=== PATIENT | female | born 1965 | race Caucasian/White ===

== ENCOUNTER 2017-01-12 13:19 | Emergency (ER) | payer SELFPAY ==
[~2017-01-12] VITALS: Ht 162.6 cm; Wt 49.9 kg
[2017-01-12 14:18] VITALS: BP 139/65
[2017-01-12 14:39] LABS: BASO # 0.1 x10^3/uL (0.0-0.2); BASO % 1 % (0-3); EOS % 5 % (0-3); HEMATOCRIT 39.5 % (36.0-47.0); HEMOGLOBIN 13.4 g/dL (12.0-15.5); LYMPH # 2.9 x10^3/uL (1.0-4.8); LYMPH % 34 % (24-48); MEAN CORPUSCULAR HEMOGLOBIN 32 pg (25-35); MEAN CORPUSCULAR HGB CONC 34 g/dL (31-37); MEAN CORPUSCULAR VOLUME 94 fL (79-100); MONO % 8 % (0-9); NEUT % 52 % (31-73); PLATELET COUNT 328 x10^3/uL (140-400); RED BLOOD COUNT 4.19 x10^6/uL (3.50-5.40); RED CELL DISTRIBUTION WIDTH 12.7 % (11.5-14.5); WHITE BLOOD COUNT 8.5 x10^3/uL (4.0-11.0)
[2017-01-12 15:43] LABS: CALCIUM 8.8 mg/dL (8.5-10.1); CREATININE 0.8 mg/dL (0.6-1.0); GFR 75.3; POTASSIUM 4.3 mmol/L (3.5-5.1)
[2017-01-12 15:49] LABS: ALBUMIN/GLOBULIN RATIO 1.3 (1.0-1.7); TOTAL BILIRUBIN 0.2 mg/dL (0.2-1.0); TOTAL PROTEIN 7.1 g/dL (6.4-8.2)
--- NOTE | 2017-01-12 16:09 | PHYS DOC ---
Past Medical History Past Medical History: Depression, Other Additional Past Medical Histor: Menigioma, Vertigo Past Surgical History: Cholecystectomy, Additional Past Surgical Histo: Brain Alcohol Use: Rarely Drug Use: None Adult General Chief Complaint Chief Complaint: SYNCOPE HPI HPI Patient is a 51 year old female who presents with foot pain after syncopal episode. The patient states she was getting out of the shower & had onset of vertigo resulting in sudden syncopal episode. She is unsure how long she was unconscious. She had brief prodrome. Denies headache, chest pain, palpitations , shortness of breath preceding syncope. She states she has been having similar symptoms for about a year, has been followed by a physician & has been told this is related to vertigo so she usually takes meclizine. She states the circumstances of the syncopal episode are very similar to all previous episodes. She denies tongue biting, incontinence, mental status changes after waking. She denies head trauma, denies neck pain. Her only complaint is right foot pain & bruising. She has a PCP in [facility]. Review of Systems Review of Systems Constitutional: Denies fever or chills, reports syncope. Eyes: Denies change in visual acuity HENT: Denies nasal congestion or sore throat Respiratory: Denies cough or shortness of breath Cardiovascular: Denies chest pain or edema GI: Denies abdominal pain, nausea, vomiting,or diarrhea Musculoskeletal: Reports foot pain. Integument: Denies rash or skin lesions Neurologic: Denies headache, focal weakness or sensory changes Allergies Allergies Allergies Coded Allergies Type Severity Reaction Last Updated Verified No Known Drug Allergies 01/12/17 No Physical Exam Physical Exam Constitutional: Well developed, well nourished, no acute distress, non-toxic appearance. HENT: Normocephalic, atraumatic, bilateral external ears normal, oropharynx moist, nose normal. Eyes: PERRLA, EOMI, conjunctiva normal, no discharge. Neck: supple, no stridor. Cardiovascular: RRR, no murmurs, no edema. Lungs & Thorax: LCTAB, no wheezing, no respiratory distress. Abdomen: soft, nontender, nondistended. Skin: Warm, dry, no erythema, no rash. Back: No tenderness. Extremities: No tenderness, no edema. Neurologic: Alert and oriented X 3, no focal deficits noted. Psychologic: Affect normal, judgement normal, mood normal. Current Patient Data Vital Signs Vital Signs Date Time Temp Pulse Resp B/P (MAP) Pulse Ox O2 Delivery O2 Flow Rate FiO2 01/12/17 14:18 66 139/65 (89) 96 Room Air 01/12/17 14:00 98.1 16 98.1 Lab Values Laboratory Tests Test 01/12/17 14:29 01/12/17 15:26 White Blood Count 8.5 x10^3/uL (4.0-11.0) Red Blood Count 4.19 x10^6/uL (3.50-5.40) Hemoglobin 13.4 g/dL (12.0-15.5) Hematocrit 39.5 % (36.0-47.0) Mean Corpuscular Volume 94 fL (79-100) Mean Corpuscular Hemoglobin 32 pg (25-35) Mean Corpuscular Hemoglobin Concent 34 g/dL (31-37) Red Cell Distribution Width 12.7 % (11.5-14.5) Platelet Count 328 x10^3/uL (140-400) Neutrophils (%) (Auto) 52 % (31-73) Lymphocytes (%) (Auto) 34 % (24-48) Monocytes (%) (Auto) 8 % (0-9) Eosinophils (%) (Auto) 5 % (0-3) H Basophils (%) (Auto) 1 % (0-3) Neutrophils # (Auto) 4.4 x10^3uL (1.8-7.7) Lymphocytes # (Auto) 2.9 x10^3/uL (1.0-4.8) Monocytes # (Auto) 0.7 x10^3/uL (0.0-1.1) Eosinophils # (Auto) 0.5 x10^3/uL (0.0-0.7) Basophils # (Auto) 0.1 x10^3/uL (0.0-0.2) Sodium Level 140 mmol/L (136-145) Potassium Level 4.3 mmol/L (3.5-5.1) Chloride Level 106 mmol/L (98-107) Carbon Dioxide Level 26 mmol/L (21-32) Anion Gap 8 (6-14) Blood Urea Nitrogen 15 mg/dL (7-20) Creatinine 0.8 mg/dL (0.6-1.0) Estimated GFR (Cockcroft-Gault) 75.3 BUN/Creatinine Ratio 19 (6-20) Glucose Level 101 mg/dL (70-99) H Calcium Level 8.8 mg/dL (8.5-10.1) Total Bilirubin 0.2 mg/dL (0.2-1.0) Aspartate Amino Transferase (AST) 21 U/L (15-37) Alanine Aminotransferase (ALT) 26 U/L (14-59) Alkaline Phosphatase 136 U/L (46-116) H Troponin I Quantitative < 0.017 ng/mL (0.000-0.055) YE-Qwt-R-Type Natriuretic Peptide 114 pg/mL (0-124) Total Protein 7.1 g/dL (6.4-8.2) Albumin 4.0 g/dL (3.4-5.0) Albumin/Globulin Ratio 1.3 (1.0-1.7) Laboratory Tests 01/12/17 14:29 Laboratory Tests 01/12/17 15:26 EKG EKG Interpreted by me: Normal sinus rhythm rate 59, no acute ST or T wave changes, normal intervals, no ectopy[] Radiology/Procedures Radiology/Procedures XR R foot, 3 views: interpreted by me: no fracture or dislocation, no acute process.[] Course & Med Decision Making Course & Med Decision Making Pertinent Labs and Imaging studies reviewed. (See chart for details) The patient presents with foot pain after fall related to syncope. She states this type of episode is very common for her. No acute abnormalities identified on EKG, labs, telemetry monitoring. XR of her foot shows no fracture. Recommend close follow up with physician who has been managing her workup as she may benefit from further evaluation including cardiology referral, possibly holter monitor. She was eager to be discharged home, felt comfortable with outpatient follow up. Recommend rest, ice, elevate foot, tylenol or ibuprofen for pain. Follow up with PCP as soon as she returns home. Come back for recurrence of syncope, severe chest pain or shortness of breath, palpitations, focal neuro deficit, mental status changes, any otherwise worsening condition. Discharged home in stable condition. [] Dragon Disclaimer Dragon Disclaimer This electronic medical record was generated, in whole or in part, using a voice recognition dictation system. Departure Departure Impression: Primary Impression: Foot contusion Additional Impression: Syncope Disposition: 01 HOME, SELF-CARE Condition: STABLE Referrals: UNKNOWN PCP NAME (PCP) Patient Instructions: Foot Contusion, [id number], Syncope, [id number] Additional Instructions: You were seen in the emergency department today for fainting and foot injury. The x-ray did not show broken bone. Tests did not show serious cause fainting. It's very important to follow-up with your primary care physician to determine cause of these frequent fainting spells. It may also be beneficial to follow-up with a milling planer operator. Rest, apply ice to your foot, elevate, wear supportive shoe. Take Tylenol or ibuprofen for pain. Return to the emergency department for recurrence of fainting, confusion, numbness or weakness in arms or legs, any otherwise worsening condition. Problem Qualifiers BREE MCCABE MD Jan 12, 2017 16:09
--- NOTE | 2017-01-13 08:57 | RAD ---
Three-view right foot radiographs 01/12/2017 Clinical history: Fall with injury to the toes. Portable AP, lateral and oblique digital radiographs of the right foot were obtained. Mild hallux valgus deformity is noted. No fracture or dislocation of the right foot is seen. Mild degenerative changes are seen involving the first MTP joint and scattered throughout the interphalangeal joints of the right foot. Impression: No fracture or dislocation of the right foot is seen.
--- NOTE | 2017-01-13 12:00 | EKG ---
[facility] [address] [place] [id number] Test Date: 2017-01-12 Test Time: 14:25:38 Pat Name: ELAINE VELAZQUEZ Department: Room: Gender: F [employer] Machine: : [id number] Requested By: BREE MCCABE Order Number: [id number] Reading MD: Measurements Intervals [place] Rate: 59 P: 73 AL: 160 QRS: 85 QRSD: 80 T: 65 QT: 402 QTc: 398 Interpretive Statements SINUS RHYTHM OTHERWISE NORMAL ECG RI6.01 No previous ECG available for comparison
== END 2017-01-12 16:29 | disposition home or self-care (01) ==
LOC: ER 13:19
DX: S90.31XA Contusion of right foot, initial encounter (principal); R55 Syncope and collapse; F32.9 Major depressive disorder, single episode, unspecified; X58.XXXA Exposure to other specified factors, initial encounter; Y93.89 Activity, other specified; Y92.89 Other specified places as the place of occurrence of the external cause; Y99.8 Other external cause status
CPT/HCPCS: 29515; 36415; 73630; 80053; 83880; 84484; 85025; 93005; 99285-25